=== PATIENT | male | born 1995 | race Two or more races ===

== ENCOUNTER 2024-08-07 03:38 | Emergency (ER) | payer MEDICARE, MEDICAID, SELFPAY ==
[2024-08-07 03:39] VITALS: BMI 23.4
[2024-08-07 03:44] VITALS: BP 146/84; PULSE 76; RESP 17; TEMP 36.9; O2SAT 100
--- NOTE | 2024-08-07 03:56 | EKG_ITS ---
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
--- NOTE | 2024-08-07 03:56 | XR_ITS ---
Examination: PA chest single view Technique: Upright PA chest single view Exam date and time: August 07, 2024 0401 hrs. Comparison April 26, 2023 Indications: Onset chest pain today. Findings: Normal heart size The lungs are clear. The osseous structures are intact Impression: No active disease
--- NOTE | 2024-08-07 04:10 | PD.EDCHEST ---
ED Chest Pain RME/HPI General Chief Complaint: Chest Pain Stated Complaint: CHEST PRESSURE Time Seen by Provider: 08/07/24 03:42 Arrival date/time: 08/07/24 03:38 RME / HPI RME / HPI narrative: A 29-year-old male patient with past medical history of ESRD on peritoneal dialysis following up with Dr Christianson, hypertension, presented to the ED due to acute chest pain started 4 hours before admission. Patient reported that the pain feels like pressure in character located at the center of the chest with no radiation. Patient reported that the pain happened at rest while he was trying to sleep. He estimate the severity as 6 out of 10, no shortness of breath no palpitations no syncope and no sweating or vomiting. No relation with the pain severity with the respiration. No lower limb edema and no orthopnea or paroxysmal nocturnal dyspnea. Patient denied any fever or chills. Related Data Home Medications ?Medication ?Instructions ?Recorded ?Confirmed sodium bicarbonate 650 mg tablet 650 mg PO BID 05/21/23 06/18/23 aspirin 81 mg tablet,delayed 81 mg PO QDAY 06/11/23 06/18/23 release Previous Rx's ?Medication ?Instructions ?Recorded atorvastatin 40 mg tablet 40 mg PO QDAY #30 tabs 05/21/23 docusate sodium 100 mg capsule 100 mg PO BID #40 caps 06/12/23 (Colace) hydrocodone 5 mg-acetaminophen 325 1 tab PO Q8HR PRN pain (scale 06/12/23 mg tablet score 7-10) #15 tabs pantoprazole 40 mg tablet,delayed 40 mg PO QDAY #30 tabs 08/07/24 release Allergies Allergy/AdvReac Type Severity Reaction Status Date / Time No Known Allergies Allergy Verified 08/07/24 03:41 ED Exam Narrative Physical exam: GEN: AOx3, able to speak full sentences HEENT: NC/AC, oral mucosa moist, neck supple CVS: RRR, S1-S2 present, no murmurs appreciated RESP: CTAB GI: peritoneal dyalsisi cath in place, abdomen is soft,non distended, non tender, NBS MSK: able to move all 4 limbs, no lower extremity edema SKIN: warm and dry SITE SAFETY REPRESENTATIVE: CN II-XII and Sensation grossly intact. 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 Care 08/07/24 03:56 Completed Continuous Pulse Oximetry ONCE Care 08/07/24 03:56 Completed EKG (ED ONLY) *Do not use* NOW Care 08/07/24 03:56 Completed Insert IV STAT Care 08/07/24 03:56 Completed EKG (ED Only) Stat Exams 08/07/24 03:56 Draft XR chest 1V portable Stat Exams 08/07/24 03:56 Completed B-Type Natriuretic Peptide Stat Lab 08/07/24 04:39 Completed CBC Stat Lab 08/07/24 04:39 Completed Comprehensive Metabolic Panel Stat Lab 08/07/24 04:39 Completed Magnesium Stat Lab 08/07/24 04:39 Completed Partial Thromboplastin Time Stat Lab 08/07/24 04:39 Completed Prothrombin Time with INR Stat Lab 08/07/24 04:39 Completed Troponin I Stat Lab 08/07/24 04:39 Completed Aspirin Chew Med 08/07/24 03:56 Discontinued 324 mg PO X1 ONE Nitroglycerin Oint 2% [Nitro-paste Oint 2%] Med 08/07/24 03:56 Discontinued 1 inch TOP X1 ONE Ondansetron Inj [Zofran Inj] Med 08/07/24 03:56 Discontinued 4 mg IV Q1HR PRN Pantoprazole Inj [Protonix Inj] Med 08/07/24 05:38 Discontinued 40 mg IVP X1 ONE Sucralfate [Carafate] Med 08/07/24 05:38 Discontinued 1 gm PO X1 ONE Oxygen Delivery PRN RT 08/07/24 03:56 Completed Vital Signs Vital signs: Vital Signs Temperature 98.5 F 08/07/24 03:44 Pulse Rate 76 08/07/24 03:44 Respiratory Rate 17 08/07/24 03:44 Blood Pressure 146/84 H 08/07/24 03:44 Pulse Oximetry (%) 100 08/07/24 03:44 Oxygen Delivery Method Room Air 08/07/24 03:44 Chest Pain MDM Narrative MDM Narrative:: Patient's previous C/S were reviewed together with the pharmacist. Patient was also presented to nephrology, as we had to do CT angio despite his CKK Patient data External records reviewed:: [facility] previous records Clinical information provided by:: patient and EMS Social determinants that could affect healthcare access:: none Patient has the following chronic illnesses:: CKD. Paraplasia. Recurrent PNA. Griffith catheter. Stoma How is presenting disease/condition affected by chronic disease/condition?: caused by Evaluation data The following diagnostics were reviewed and interpreted by me:: EKG tracing(s) (My interpretation of the EKG is: Sinus rhythm (75 bpm) with nonspecific ST-T changes. Gaston Chance MD) Lab and/or radiology exams considered but not ordered:: PNA and UTI. CKD Interpretation Summary: As noted Medications / Prescriptions Medications or Prescriptions considered but not ordered:: NA Medication administrations:: Medication Administration History Discontinued Medications Aspirin (Aspirin 81 Mg Chew) 324 mg PO X1 ONE Stop: 08/07/24 03:57 Last Admin: 08/07/24 05:33 Dose: 324 mg Documented By: TC Nitroglycerin (Nitroglycerin Oint 2% 1 Inch Packet) 1 inch TOP X1 ONE Stop: 08/07/24 03:57 Last Admin: 08/07/24 06:03 Dose: Not Given Documented By: TC Non-Admin Reason: Contraindicated Ondansetron HCl (Ondansetron Inj 2 Mg/Ml Inj 2 Ml) 4 mg IV Q1HR PRN PRN Reason: PERSISTENT NAUSEA OR VOMITING Pantoprazole Sodium (Pantoprazole Inj 40 Mg Vial) 40 mg IVP X1 ONE Stop: 08/07/24 05:39 Last Admin: 08/07/24 06:02 Dose: 40 mg Documented By: TC Sucralfate (Sucralfate 1 Gm Tablet) 1 gm PO X1 ONE Stop: 08/07/24 05:39 Last Admin: 08/07/24 06:16 Dose: 1 gm Documented By: TC NA Consultations Consultation(s) initiated? (list below): Yes Diagnosis Most likely diagnosis given after review of the tests above:: PNA. UTI. CKD. Griffith. Stoma. Paraplasia Admission Indicated Admission indicated?: indicated Admission Request Was there a request for admission?: Yes Admission Attestation Admission request attestation: Discussed case with [] from Hospitalist service regarding admission. Discussed patients ED course, exam findings, labs, and radiology results. The Hospitalist [agrees,declines] to accept the patient for admission. Disposition Plan Disposition Plan: Admit Discharge Plan Plan Patient Disposition: HOME (Self Care) Patient condition on transfer: Stable Prescriptions/Referrals Prescriptions/Med Rec: New pantoprazole 40 mg tablet,delayed release (DR/EC) 40 mg PO QDAY Qty: 30 0RF No Action sodium bicarbonate 650 mg tablet 650 mg PO BID atorvastatin 40 mg tablet 40 mg PO QDAY Qty: 30 5RF aspirin 81 mg Tablet,Delayed Release (Dr/Ec) 81 mg PO QDAY docusate sodium [Colace] 100 mg capsule 100 mg PO BID Qty: 40 0RF hydrocodone-acetaminophen 5-325 mg tablet 1 tab PO Q8HR MDD 3 PRN (Reason: pain (scale score 7-10)) Qty: 15 0RF Referrals: Nima Wilkins MD [Primary Care Provider] - In 1 week Problem List Clinical Impression: Gastritis Patient/Caregiver Discharge Instructions Education Materials: ED Gastritis (Adult) Print Language: French Stand Alone Forms: Mya Award Info., Patient Portal Info Letter Attestation Attestation At 0600 on 08/07/24, the care of the patient was transferred to Dr. Serrano. Gaston Chance MD
[2024-08-07 05:02] LABS: Basophils # (Auto) 0.1 Thou/mm3 (0.0-0.2); Basophils % (Auto) 1 % (0-2.5); Eosinophils # (Auto) 0.5 Thou/mm3 (0.0-0.5); Eosinophils % (Auto) 4 % (0-10); Hematocrit 32.4 % (41.0-53.0); Hemoglobin 11.3 g/dL (13.5-16.0); Immature Granulocytes % (Auto) 0 % (0-0); Immature Granulocytes Auto 0.05 Thou/mm3 (0.00-0.00); Lymphocytes # (Auto) 2.6 Thou/mm3 (1.0-4.8); Lymphocytes % (Auto) 22 % (10-50); Mean Corpuscular HGB Conc 34.9 g/dl (31.0-37.0); Mean Corpuscular Hemoglobin 33.6 pg (25.0-35.0); Mean Corpuscular Volume 96 fL (80-100); Monocytes # (Auto) 0.7 Thou/mm3 (0.0-0.8); Monocytes % (Auto) 6 % (0-12); Neutrophils % (Auto) 67 % (37-80); Nucleated Red Blood Cell % 0 /100 WBC (0); Platelet Count 283 Thou/mm3 (140-440); RDW Standard Deviation 52.3 fL (35.1-43.9); Red Blood Count 3.36 Miln/mm3 (4.50-5.90); White Blood Count 11.9 Thou/mm3 (3.8-10.6)
[2024-08-07 05:23] VITALS: BP 146/91; PULSE 68; RESP 13; O2SAT 100
[2024-08-07 05:24] LABS: B-Type Natriuretic Peptide < 20 pg/mL (0-100); Partial Thromboplastin Time 24.8 Seconds (22.0-36.0); Prothrombin Time 10.6 Seconds (9.0-12.2)
[2024-08-07] MEDS: ASPIRIN 81 MG CHEW 324 MG PO (05:33)
[2024-08-07 05:52] LABS: Alanine Aminotransferase 28 U/L (10-49); Albumin, Serum 4.5 gm/dL (3.5-5.0); Albumin/Globulin Ratio 1.5 (1.2-2.2); Alkaline Phosphatase 83 U/L (46-116); Anion Gap 10 (7-16); Aspartate Amino Transferase < 8 U/L (0-34); BUN/Creatinine Ratio 6 Ratio (12-20); Bilirubin,Total 0.3 mg/dL (0.3-1.2); Blood Urea Nitrogen 44 mg/dL (9-23); Calcium 9.9 mg/dL (8.3-10.6); Calcium (Corrected) 9.9 mg/dL (8.5-10.1); Carbon Dioxide 23.3 mMol/L (20.0-31.0); Chloride 103 mMol/L (98-107); Creatinine (Component) 7.8 mg/dL (0.6-1.3); Glucose 111 mg/dL (74-106); Magnesium 1.8 mg/dL (1.6-2.6); Osmolality,Calculated 284 (275-295); Potassium 3.8 mMol/L (3.4-5.1); Sodium 136 mMol/L (136-145); Total Protein 7.5 gm/dL (5.7-8.2); Troponin I < 0.002 ng/mL (0.0-0.045); eGFR 9 See Note
[2024-08-07] MEDS: PANTOPRAZOLE INJ 40 MG VIAL IVP (06:02)
[2024-08-07 06:03] VITALS: BP 127/84; PULSE 63
[2024-08-07] MEDS: SUCRALFATE 1 GM TABLET PO (06:16)
[2024-08-07 06:17] VITALS: BP 135/85; PULSE 65; RESP 17; O2SAT 100
--- NOTE | 2024-08-07 06:38 | PD.EDADDENDU ---
Emergency Room Addendum Addendum Narrative: check out. Patient awaits chest pain work up labs. Troponin is negative and his pain responded to Carafate and Pantoprazole. Is requesting DC
[2024-08-07 06:49] VITALS: BP 128/88; PULSE 67; RESP 16; TEMP 36.7; O2SAT 98
== END 2024-08-07 06:52 | disposition home or self-care (01) ==
PROVIDERS: Student in an Organized Health Care Education/Training Program; Emergency Provider Emergency Medicine; PCP Family Medicine
DX: K29.70 Gastritis, unspecified, without bleeding (principal); I49.8 Other specified cardiac arrhythmias; R07.9 Chest pain, unspecified; I12.0 Hypertensive chronic kidney disease with stage 5 chronic kidney disease or end stage renal disease; N18.6 End stage renal disease; Z99.2 Dependence on renal dialysis
CPT/HCPCS: 36415; 71045; 80053; 83735; 83880; 84484; 85025; 85610; 85730; 93005; 96374; 99284; J2470; A9270

== ENCOUNTER → 2025-03-01 | Outpatient (CLI) | payer MEDICARE, MEDICAID, SELFPAY ==
--- NOTE | 2025-03-01 15:26 | XR_ITS ---
Examination: Retroperitoneal ultrasound, complete Technique: Multiple high resolution grayscale images of the retroperitoneum obtained, including kidneys and bladder. Exam date and time:August 31, 2025 1547 hours INDICATIONS: Left flank pain beginning 2 days ago FINDINGS: Right kidney 6.2 cm cortex 0.9 cm Left kidney 7.4 cm cortex 1.3 cm Mild bilateral renal parenchymal scar formation Poor differentiation between renal cortex and medulla bilaterally Contracted urinary bladder No bladder mass or bladder calculi Negative for prostatomegaly IMPRESSION: Small kidneys with renal cortical thinning Poor differentiation between renal cortex and medulla seen with intrinsic renal medical disease
== END | disposition home or self-care (01) ==
PROVIDERS: PCP Nurse Practitioner Family; Referring Provider Nurse Practitioner Family; Visit Provider Nurse Practitioner Family
DX: N28.89 Other specified disorders of kidney and ureter (principal); N32.89 Other specified disorders of bladder
CPT/HCPCS: 76770

== ENCOUNTER → 2025-06-02 | Outpatient (CLI) | payer MEDICARE, MEDICAID, SELFPAY ==
--- NOTE | 2025-06-02 14:30 | XR_ITS ---
Examination: Ultrasound soft tissue extremity right wrist TECHNIQUE: Grayscale sonographic images soft tissue right breast INDICATIONS: Palpable lump right wrist 2 months Date and time: June 02, 2025 1432 hours FINDINGS: No cystic or solid mass noted More obvious bony prominence of the distal ulna on the right less wrist compared to the left wrist IMPRESSION: Recommend follow-up plain films right wrist
== END | disposition home or self-care (01) ==
PROVIDERS: PCP Physician Assistant; Referring Provider Physician Assistant; Visit Provider Physician Assistant
DX: M67.40 Ganglion, unspecified site (principal)
CPT/HCPCS: 76882

== ENCOUNTER → 2025-06-13 | Outpatient (CLI) | payer MEDICARE, MEDICAID, SELFPAY ==
--- NOTE | 2025-06-13 12:48 | XR_ITS ---
Examination: Wrist, right 3 views Technique: Wrist AP, oblique, lateral 3 views Date and time of exam: June 13, 2025, 1258 hours INDICATIONS: Palpable lump on the wrist noticed beginning one week ago. FINDINGS: No fracture or dislocation No bony exostosis Iterative ganglion cyst is a clinical consideration, suggest MRI wrist without contrast follow-up IMPRESSION: No fracture or dislocation
== END | disposition home or self-care (01) ==
PROVIDERS: PCP Nurse Practitioner Family; Referring Provider Nurse Practitioner Family; Visit Provider Nurse Practitioner Family
DX: R22.31 Localized swelling, mass and lump, right upper limb (principal)
CPT/HCPCS: 73110